=== PATIENT | male | born 1960 | race Caucasian/White ===

== ENCOUNTER 2016-10-02 16:04 | Emergency (ER) | payer BC, OTHER ==
[2016-10-02] MEDS ORDERED: PREDNISONE 20 MG TABLET ONE (17:46)
--- NOTE | 2016-10-02 18:19 | RAD ---
CHEST - 2 VIEWS COMPARISON: None. HISTORY: Cough for a month. FINDINGS: Views: Frontal and lateral chest Lungs: Normal Heart and vessels: Normal Trachea and bronchi: Normal Mediastinum and itzel: Normal Costophrenic sulci: Normal Chest wall and bones: No acute finding. Surgical clips in the right humeral head. Upper abdomen: Normal. IMPRESSION: Negative 2 view chest.
== END 2016-10-02 18:39 | disposition home or self-care (01) ==
LOC: ED 16:04
DX: J06.9 Acute upper respiratory infection, unspecified (principal); J45.909 Unspecified asthma, uncomplicated